=== PATIENT | male | born 1980 | race Hispanic/Latino ===

== ENCOUNTER 2024-08-09 10:53 | Emergency (ER) | payer SELFPAY ==
[2024-08-09 11:01] VITALS: BP 136/84
[2024-08-09 11:44] LABS: Urine Albumin Negative (Neg - Trace); Urine Bilirubin Negative (Negative); Urine Character Clear (Clear); Urine Color Yellow; Urine Glucose Negative (Negative); Urine Ketone Negative (Negative); Urine Leukocyte Negative (Negative); Urine Nitrite Negative (Negative); Urine Occult Blood Negative (Negative); Urine Specific Gravity 1.015 (<1.030); Urine Urobilinogen Negative (Neg - 1+)
[2024-08-09 14:27] VITALS: BP 117/67
--- NOTE | 2024-08-09 14:58 | ED.GENMED ---
History of Present Illness
General
Chief Complaint: Male Genito-Urinary Symptoms
Source: patient
Exam Limitations: none
Time Seen by Provider: 08/09/24 12:44
History of Present Illness
History of Present Illness:
44-year-old male 8 days of right groin and right flank pain. No fever chills no vomiting. No urinary symptoms. Some pain rating to the testicle.
Past History
Past History
ED Past Medical History: None
Review of Systems
Review of Systems
All Other Systems: Not applicable
Constitutional: Denies fever or chills
: Denies dysuria or frequency
Phy Exam
Physical Exam
Physical Exam:
GENERAL: Alert and oriented in no apparent distress
EYE: Orbits normal.
NECK: Supple
CARDIAC: Regular rate and rhythm without any obvious murmurs.
LUNGS: Clear breath sounds,normal
ABDOMEN: Soft, without focal tenderness or distention. No right lower quadrant tenderness. Minimal tenderness at the right inguinal area. No hernia. Testicles normal. Cremasteric reflex intact. No swelling no erythema. Gait normal
NEUROLOGICAL: Alert and oriented , grossly non-focal
SKIN: Warm and dry, no rash or lesion, no discoloration, skin intact.
MUSCULOSKELETAL: No edema,no deformity.Good color
PSYCH: Normal and appropriate interaction.
Course
Orders/Labs/Results
Orders:
Orders
08/09/24 11:06
Scrotum US [US Scrotum] Urgent
Comment:
Reason For Exam: R testicular pain
08/09/24 11:14
Urinalysis Reflex To Culture Urgent
Date Specimen was Collected: 08/09/24
Time Specimen was Collected: 11:06
08/09/24 13:28
CT Abd/pel Without Iv Or Oral Urgent
Comment:
Reason For Exam: Right flank pain
Vital Signs
Initial and Last Documented VS:
Initial Vital Signs
Temp Pulse Resp BP Pulse Ox
98.3 F 82 18 136/84 99
08/09/24 11:01 08/09/24 11:01 08/09/24 11:01 08/09/24 11:01 08/09/24 11:01
Last Documented Vital Signs
Temp Pulse Resp BP Pulse Ox
99.2 F 74 18 117/67 100
08/09/24 14:27 08/09/24 14:27 08/09/24 14:27 08/09/24 14:27 08/09/24 14:27
*Radiology
Radiology exam reviewed: radiology read reviewed (Small varicocele. Appendicolith with no signs of acute appendicitis)
*Pulse Oximetry
Patient hypoxic: no
*Critical Care Note
Total Time (30-74mins, 75-104mins- exclusive of procedures): Not Applicable
Update Note
Update Note:
Patient updated. Nothing to support an infectious process. No fever. Appendicolith but no acute appendicitis by CT in addition no true right lower quadrant tenderness. More right flank towards the testicle. Nothing to support a testicular
infection or testicular torsion. Symptomatic treatment and follow-up. Explained at length with the child daycare worker. Stressed to return with any increasing pain fever or any other concerning
ED Attending Note
-
Portions of this chart may have been created with voice recognition software.� Occasional wrong word or��sound alike� substitutions may have occurred due to the inherent limitations of voice recognition software.
Discharge Plan
Departure
Patient Disposition: Home (Routine Discharge)
Date of Disposition: 08/09/24
Time of Disposition: 15:00
Patient with high blood pressure during this ER visit?: No
Discharge Problem:
Right flank/back pain, Incidental varicocele, Incidental appendicolith
Instructions: Flank Pain ED, Abdominal Pain
Referrals:
Zarina Renner, LASER TECHNICIAN [Family Provider] - Follow up in 2-3 days
Activity Restrictions/Additional Instructions:
Advil or Motrin for pain
If your pain progresses, fever, vomiting or any other concerning symptom please return immediately to the ER for reevaluation
There is a small stone in your appendix however there is no sign that the appendix is inflamed at this time. However again, return with increased pain fever vomiting etc.
Interventions
Interventions:
*Risk Screen - Suicide Last Done: 08/09/24 11:01
*General Assessment Last Done: 08/09/24 12:58
*Neglect/Abuse Screening Last Done: 08/09/24 12:58
*ED COVID-19 Vaccine History Last Done: 08/09/24 12:58
ED-Male Genitourinary Assessment Last Done: 08/09/24 13:02
Discharge Date and Time
Print Language: BELIZEAN
[2024-08-09 15:18] VITALS: BP 119/72
== END 2024-08-09 15:28 | disposition home or self-care (01) ==
LOC: EMR 10:53
PROVIDERS: Emergency Medicine; EMERGENCY PHYSICIAN Emergency Medicine; FAMILY PHYSICIAN Nurse Practitioner Adult Health
DX: I86.1 Scrotal varices (principal); K38.1 Appendicular concretions; M54.9 Dorsalgia, unspecified
CPT/HCPCS: 99285; 74176; 76870; 81003; 93976

== ENCOUNTER 2025-02-10 03:51 | Emergency (ER) | payer SELFPAY ==
[2025-02-10] VITALS (8 sets, daily range): BP systolic 98–121; BP diastolic 55–76; BMI 26.7
[2025-02-10] MEDS: NSS 1000 IV ×2 (05:30→06:17)
[2025-02-10] MEDS: ZOFRAN 4 MG IV (06:10)
--- NOTE | 2025-02-10 06:16 | ED.GENMED ---
History of Present Illness
General
Chief Complaint: Breathing Problem
Source: patient and pot feeder
Exam Limitations: none
Time Seen by Provider: 02/10/25 06:02
Nursing documentation reviewed up to this point in time: agreed with
History of Present Illness
History of Present Illness:
44-year-old male presents after recent Motrin taking 420 mg Delta 9 gummy for the first time. He has been vomiting, and complaining of cramping in his hands.
Past History
Past History
ED Past Medical History: None
ED Past Surgical History: None
Social History
Tobacco: Non-smoker
Alcohol: None
Drug: Marijuana
Review of Systems
Review of Systems
Allergies reviewed?: Yes
All Other Systems: Not applicable
Constitutional: Reports no symptoms
EENT: Reports no symptoms
Respiratory: Reports trouble breathing
Cardiac: Reports no symptoms
ABD/GI: Reports vomiting
: Reports no symptoms
Musculoskeletal: Reports no symptoms
Skin: Reports no symptoms
Neurological: Reports no symptoms
Endocrine: Reports no symptoms
Hematologic/Lymphatic: Reports no symptoms
Psychiatric: Reports no symptoms
Phy Exam
Physical Exam
Physical Exam:
Physical Exam
General: Appears uncomfortable, vomiting in room
Neck: supple. no meningeal signs. normal posterior pharynx
Heart: s1/s2 tachycardia, no murmur. equal radial
pulses.
HEENT: Pupils equal round reactive to light, EOMI
Lungs: no acute respiratory distress. clear bilaterally
Abdomen: normal bowel sounds. not tender. no CVAT
Neuro: alert and oriented. no focal neurological deficits cranial nerves II through XII intact
Skin: no rash
Psychiatric: well kept. interactive and cooperative
Extremities: no edema. no calf tenderness. negative homans. good distal pulses
Scores
Heart Failure Risk
Heart Failure Risk Score: Not Applicable
Course
Orders/Labs/Results
Orders:
Orders
02/10/25 05:30
0.9% Sodium Chloride 1000 ml [Nss] 1,000 ml IV BOLUS
02/10/25 06:10
Ondansetron Injectable [Zofran] 4 mg .ROUTE .STK-MED ONE
Ondansetron Injectable [Zofran] 4 mg IV NOW STA
02/10/25 06:14
IV Insert/Care/Rem.- Treatment PRN
0.9% Sodium Chloride 1000 ml [Nss] 1,000 ml IV BOLUS
02/10/25 06:16
0.9% Sodium Chloride 1000 ml [Nss] 1,000 ml IV BOLUS
02/10/25 06:20
Complete Blood Count/With Diff Urgent
Comprehensive Metabolic Panel Urgent
02/10/25 09:05
EKG- Treatment ONCE
02/10/25 09:06
Electrocardiogram (*1) Urgent
Reason for Study: Shortness of Breath
02/10/25 09:11
Diphenhydramine [Benadryl] 25 mg IV NOW STA
Metoclopramide [Reglan] 10 mg IV NOW STA
02/10/25 09:18
Haloperidol Lactate [Haldol] 1 mg IV NOW STA
Abnormal Lab Results
02/10/25
06:20
Abs Immat Gran (auto) 0.2 H 10^3/uL
(0-0.05)
Absolute Monos (auto) 0.7 H 10^3/uL
(0.1-0.6)
Immature Gran % 1.5 H %
(0-0.5)
Chloride 109 H mmol/L
(98-107)
Carbon Dioxide 19 L mmol/L
(22-30)
BUN 23 H mg/dl
(9-20)
Glucose 172 H mg/dl
(70-99)
02/10/25 06:20
02/10/25 06:20
Vital Signs
Initial and Last Documented VS:
Initial Vital Signs
Temp Pulse Resp BP Pulse Ox
97.8 F 105 18 121/76 98
02/10/25 03:57 02/10/25 03:57 02/10/25 03:57 02/10/25 03:57 02/10/25 03:57
Last Documented Vital Signs
Temp Pulse Resp BP Pulse Ox
97.8 F 91 13 100/66 96
02/10/25 03:57 02/10/25 10:45 02/10/25 10:45 02/10/25 10:00 02/10/25 10:45
MDM/Problems Addressed
Differential Diagnosis Includes:
Dysrhythmia, electrolyte disturbance
MDM/Problems Addressed:
44-year-old male with delta 9 tetrahydrocannabinol ingestion nausea and vomiting. Improved after IV Haldol. Stable for discharge.
*Pulse Oximetry
SaO2: 94
Oxygen Mode of Delivery: Room air
Patient hypoxic: no
*EKG
Interpreted by ED Provider?: Yes
EKG Intrepretation Date: 02/10/25
EKG Intrepretation Time: 09:12
Interpretation: abnormal
Comparison EKG: no comparison EKG present
Heart Rate: 94
Rate: normal
Rhythm: sinus
[place]: normal axis
Interval: normal interval
QRS Pattern: left vent hypertrophy
Ischemia: non-specific ST changes
*Critical Care Note
Total Time (30-74mins, 75-104mins- exclusive of procedures): Not Applicable
Patient Management
Social determinants of health affecting care: Living situation and Strong social support
Escalation/DeEscalation of care consider admission/obs:
admit not indicated
ED Attending Note
-
Portions of this chart may have been created with voice recognition software.� Occasional wrong word or��sound alike� substitutions may have occurred due to the inherent limitations of voice recognition software.
Discharge Plan
Departure
Patient Disposition: Home (Routine Discharge)
Date of Disposition: 02/10/25
Time of Disposition: 11:08
Patient with high blood pressure during this ER visit?: Yes
Condition: Good
Discharge Problem:
Moderate nausea and vomiting, Paresthesias, Mild tetrahydrocannabinol (THC) abuse
Instructions: Nausea and Vomiting, Adult (DC), Marijuana, Nausea and vomiting in adults, BLOOD PRESSURE
Prescriptions:
New
ondansetron 4 mg tablet,disintegrating
4 mg PO Q8H PRN (Reason: nausea and vomiting) 4 Days Qty: 7 0RF
Referrals:
NONE,* [Family Provider, Internal Medicine]
Interventions
Interventions:
*Risk Screen - Suicide Last Done: 02/10/25 03:57
*General Assessment Last Done: 02/10/25 03:57
*Neglect/Abuse Screening Last Done: 02/10/25 03:57
*ED- Fall Risk Assessment Last Done: 02/10/25 07:51
*ED COVID-19 Vaccine History Last Done: 02/10/25 03:57
*Nursing Disposition Last Done: 02/10/25 11:17
NT-Xenxdk-Pjiniuwfaj Assessment Last Done: 02/10/25 04:34
ED- Cardiac Assessment Last Done: 02/10/25 04:34
ED- Pulmonary Assessment Last Done: 02/10/25 04:34
Discharge Date and Time
Discharge Date/Time: 02/10/25 11:18
Print Language: ITALIAN
[2025-02-10 06:30] LABS: % Basophils 0.5 % (0-2); % Eosinophils 2.4 % (0-6); % Immature Granulocytes 1.5 % (0-0.5); % Lymphocytes 30.6 % (20.5-51.1); % Monocytes 7.2 % (1.7-9.3); % Neutrophils 57.8 % (42.2-75.2); Absolute Basophils 0.1 10^3/uL (0-0.2); Absolute Eosinophils 0.2 10^3/uL (0-0.7); Absolute Immature Granulocytes 0.2 10^3/uL (0-0.05); Absolute Monocytes 0.7 10^3/uL (0.1-0.6); Absolute Neutrophils 5.7 10^3/uL (1.4-6.5); Hemoglobin 13.9 g/dL (13.0-18.0); Mean Corp Hgb Conc. 33.9 g/dL (33.0-37.0); Mean Corpuscular Hgb 29.3 pg (27.0-31.0); Mean Corpuscular Volume 86.3 fL (80.0-94.0); Nucleated Red Blood Cells % 0 % (-); Platelet Count 276 10^3/uL (130-400); Red Blood Cell Count 4.75 10^6/uL (4.70-6.10); Red Cell Dist. Width 12.3 % (11.5-14.5); White Blood Cell Count 9.9 10^3/uL (4.8-10.8)
[2025-02-10 06:42] LABS: ALT (SGPT) 26 U/L (0-50); AST (SGOT) 25 U/L (17-59); Albumin 4.4 g/dl (3.5-5.0); Alkaline Phosphatase 69 U/L (38-126); Blood Urea Nitrogen 23 mg/dl (9-20); Calcium 8.4 mg/dl (8.4-10.2); Carbon Dioxide 19 mmol/L (22-30); Chloride 109 mmol/L (98-107); Estimated Creatinine Clearance 93 ml/min; Glucose 172 mg/dl (70-99); Potassium 3.6 mmol/L (3.5-5.1); Sodium 141 mmol/L (135-145); Total Bilirubin 0.5 mg/dl (0.2-1.3); Total Protein 7.4 g/dl (6.3-8.2); eGFR > 60.00
[2025-02-10] MEDS: HALDOL 1 MG IV (09:23)
== END 2025-02-10 11:18 | disposition home or self-care (01) ==
LOC: EMR 03:51
PROVIDERS: EMERGENCY PHYSICIAN Emergency Medicine
DX: R11.2 Nausea with vomiting, unspecified (principal); R20.2 Paresthesia of skin; F12.10 Cannabis abuse, uncomplicated
CPT/HCPCS: 99284; 96374; 96375; 96361; 80053; 85025; 93005